=== PATIENT | male | born 1945 | race Caucasian/White ===

== ENCOUNTER 2019-08-01 10:22 | Outpatient (CLI) | payer OTHER | END 2019-08-01 10:33 | disposition home or self-care (01) | LOC: MAMO-SONO 10:22 | DX: Z12.31 Encounter for screening mammogram for malignant neoplasm of breast (principal); N60.11 Diffuse cystic mastopathy of right breast; N60.12 Diffuse cystic mastopathy of left breast; Z87.898 Personal history of other specified conditions ==

== ENCOUNTER 2023-02-26 10:47 | Outpatient (CLI) | payer OTHER | END 2023-02-26 10:53 | disposition home or self-care (01) | LOC: SONOGRAMA 10:47 | PROVIDERS: ATTEND Urology | DX: N40.0 Benign prostatic hyperplasia without lower urinary tract symptoms (principal); R97.20 Elevated prostate specific antigen [PSA]; R31.21 Asymptomatic microscopic hematuria ==